=== PATIENT | male | born 1995 | race Caucasian/White ===

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

== ENCOUNTER 2022-05-22 12:35 | Emergency (ER) | payer OTHER ==
[~2022-05-22] VITALS: Ht 182.9 cm; Wt 72.9 kg
[~2022-05-22 12:35] MED LIST: ALBU17IN INH; ZYRT10CA5 PO
[2022-05-22 16:34] LABS: GC DNA AMPLIFICATION NEGATIVE (NEGATIVE)
[2022-05-22] MEDS ORDERED: CIPR-249 PO (16:39)
[2022-05-22 16:47] VITALS: BP 131/69
== END 2022-05-22 16:49 | disposition home or self-care (01) ==
LOC: M ED 12:35
DX: N39.0 Urinary tract infection, site not specified (principal); J45.909 Unspecified asthma, uncomplicated; F90.9 Attention-deficit hyperactivity disorder, unspecified type; F17.210 Nicotine dependence, cigarettes, uncomplicated; Z84.1 Family history of disorders of kidney and ureter